=== PATIENT | male | born 1950 | race Caucasian/White ===

== ENCOUNTER 2024-12-11 11:45 | Inpatient (IN) | payer OTHER ==
[2024-12-11 13:36] LABS: INR 1.18 (0.83-1.09); PROTHROMBIN TIME (PATIENT) 12.9 SEC (9.7-13.0)
[2024-12-11 13:41] LABS: ABSOLUTE IMMATURE GRANULOCYTES 0.05 x10^3/uL (0.0-0.031); BASOPHILS # 0.02 x10^3/uL (0.01-0.08); HEMATOCRIT 22.8 % (40.1-51.0); HEMOGLOBIN 6.8 g/dL (13.7-17.5); MCHC 29.8 g/dl (32.3-36.5); MEAN CELL VOLUME 82.9 fl (79.0-92.2); MEAN PLT VOLUME 9.3 fl (9.4-12.4); MONOCYTE # 0.59 x10^3/uL (0.30-0.82); MONOCYTE % 8.8 % (5.3-12.2); PLATELET COUNT 335 x10^3/uL (163-337); RDW 20.9 % (12.2-16.6)
[2024-12-11 14:07] LABS: POTASSIUM 4.7 mmol/L (3.5-5.1)
[2024-12-11 14:08] LABS: ALBUMIN 2.7 g/dl (3.4-5.0); BLOOD UREA NITROGEN 16.4 mg/dL (7-18); CALCIUM 8.8 mg/dL (8.5-10.1); MAGNESIUM 2.2 mg/dL (1.8-2.4)
[2024-12-11 14:13] LABS: CREATININE 1.2 mg/dL (0.55-1.3)
[2024-12-11 14:14] LABS: BILIRUBIN,TOTAL 0.5 mg/dL (0.2-1); TOT PROT 6.6 g/dl (6.4-8.2)
[2024-12-11 14:17] LABS: N-TERMINAL BNP 4722.3 pg/ml (5-125)
[2024-12-11] MEDS: ACETAMINOPHEN 1000 MG/100 ML BAG IVPB ONE (20:54)
[2024-12-11 21:15] VITALS: BMI 37.3
[2024-12-11] MEDS: ATORVASTATIN CA 10 MG TABLET (FP) PO SCH (21:53)
[2024-12-11] MEDS: TAMSULOSIN HCL 0.4 MG CAP PO SCH (21:54)
[2024-12-11] MEDS: metoPROLOL SUCCINATE 25 MG TAB.SR.24H (FP) PO SCH (22:16)
[2024-12-11] MEDS: OXYBUTYNIN CHLORIDE 5 MG TABLET PO SCH (22:19)
[2024-12-11] MEDS: ACETAMINOPHEN 1000 MG/100 ML BAG IVPB PRN (22:40)
[2024-12-11 23:51] LABS: ABSOLUTE IMMATURE GRANULOCYTES 0.03 x10^3/uL (0.0-0.031); BASOPHILS # 0.04 x10^3/uL (0.01-0.08); EOSINOPHIL % 3.4 % (0.8-7.0); EOSINOPHILS # 0.22 x10^3/uL (0.04-0.54); HEMATOCRIT 22.8 % (40.1-51.0); HEMOGLOBIN 7.3 g/dL (13.7-17.5); MEAN CELL VOLUME 81.7 fl (79.0-92.2); MEAN PLT VOLUME 9.3 fl (9.4-12.4); MONOCYTE # 0.68 x10^3/uL (0.30-0.82); MONOCYTE % 10.6 % (5.3-12.2); PLATELET COUNT 300 x10^3/uL (163-337); RDW 20.1 % (12.2-16.6)
[2024-12-12] MEDS ORDERED: OXYBUTYNIN CHLORIDE 5 MG TABLET PO SCH (10:00)
[2024-12-12] MEDS ORDERED: PATIENT'S OWN MEDICATION (NON-FORMULARY) (Vibegron [Gemtesa] 75 MG Tablet) PO SCH (10:00)
[2024-12-12] MEDS ORDERED: metoPROLOL SUCCINATE 25 MG TAB.SR.24H (FP) PO SCH (10:00)
[2024-12-12 12:00] LABS: ABSOLUTE IMMATURE GRANULOCYTES 0.03 x10^3/uL (0.0-0.031); BASOPHILS # 0.03 x10^3/uL (0.01-0.08); EOSINOPHIL % 2.1 % (0.8-7.0); EOSINOPHILS # 0.13 x10^3/uL (0.04-0.54); HEMATOCRIT 23.2 % (40.1-51.0); HEMOGLOBIN 7.3 g/dL (13.7-17.5); MCHC 31.5 g/dl (32.3-36.5); MEAN CELL VOLUME 83.2 fl (79.0-92.2); MEAN PLT VOLUME 9.1 fl (9.4-12.4); MONOCYTE # 0.56 x10^3/uL (0.30-0.82); MONOCYTE % 9.1 % (5.3-12.2); PLATELET COUNT 276 x10^3/uL (163-337); RDW 20.3 % (12.2-16.6)
[2024-12-12 12:24] LABS: POTASSIUM 4.8 mmol/L (3.5-5.1)
[2024-12-12 12:36] LABS: ALBUMIN 2.4 g/dl (3.4-5.0); BLOOD UREA NITROGEN 15.4 mg/dL (7-18); CALCIUM 8.7 mg/dL (8.5-10.1)
[2024-12-12 12:37] LABS: MAGNESIUM 2.2 mg/dL (1.8-2.4)
[2024-12-12 12:40] LABS: BILIRUBIN,TOTAL 0.4 mg/dL (0.2-1); CREATININE 1.2 mg/dL (0.55-1.3); TOT PROT 6.1 g/dl (6.4-8.2)
[2024-12-12] MEDS: EMPAGLIFLOZIN (JARDIANCE) 10 MG TABLET PO SCH (15:38)
[2024-12-13 19:52] VITALS: BP 132/66; PULSE 87; RESP 18; TEMP 98.6
== END 2024-12-13 20:11 | disposition home or self-care (01) | DRG 811 ==
LOC: JER 11:45 → OBSVTOIN 16:21 → JERBED 16:21 → J7W 18:30 → J4S 19:18
PROVIDERS: ADMIT Internal Medicine; ATTEND Internal Medicine
PROC: 30233N1 Transfusion of Nonautologous Red Blood Cells into Peripheral Vein, Percutaneous Approach (ICD-10-PCS; principal; 2024-12-11)
DX: D62 Acute posthemorrhagic anemia (principal); I26.99 Other pulmonary embolism without acute cor pulmonale; I82.5Z3 Chronic embolism and thrombosis of unspecified deep veins of distal lower extremity, bilateral; N30.41 Irradiation cystitis with hematuria; I48.20 Chronic atrial fibrillation, unspecified; I27.20 Pulmonary hypertension, unspecified; L81.8 Other specified disorders of pigmentation; G47.30 Sleep apnea, unspecified; I34.0 Nonrheumatic mitral (valve) insufficiency; I12.9 Hypertensive chronic kidney disease with stage 1 through stage 4 chronic kidney disease, or unspecified chronic kidney disease; N18.9 Chronic kidney disease, unspecified; R31.9 Hematuria, unspecified; D50.9 Iron deficiency anemia, unspecified; Z85.46 Personal history of malignant neoplasm of prostate; Z86.73 Personal history of transient ischemic attack (TIA), and cerebral infarction without residual deficits; Z95.2 Presence of prosthetic heart valve
CPT/HCPCS: 0241U-QW; 36415; 36430; 71045-TC-FY; 71275-TC; 80053; 83735; 83880; 84100; 84484; 85025; 85610; 85730; 86850; 86900; 86901; 86922; 93005; 93010; 93306-TC; 93970-TC; 94660; 99285-25; G0277; P9058; Q9967